=== PATIENT | female | born 1990 | race Caucasian/White ===

== ENCOUNTER 2020-03-15 16:26 | Emergency (ER) | payer MEDICAID ==
[~2020-03-15] VITALS: Ht 160 cm; Wt 63.5 kg
[2020-03-15 16:43] VITALS: BP 120/74
--- NOTE | 2020-03-15 16:47 | NUR ---
PATIENT TRIAGED. NOT IN ACUTE DISTRESS. ASKED TO WAIT IN LOBBY TO BE SEEN BY MD.
[2020-03-15] MEDS ORDERED: KETOROLAC 30 MG/ML VIAL IM ONE (16:50)
--- NOTE | 2020-03-15 18:40 | NUR ---
PT PLACED IN RIGHT ARM SLING
[2020-03-15 18:45] VITALS: BP 120/74
== END 2020-03-15 18:45 | disposition home or self-care (01) ==
LOC: MED 16:26
DX: M79.601 Pain in right arm (principal)
CPT/HCPCS: 73060; 73090; 96372; 99284; J1885